=== PATIENT | female | born 1960 | race African-American/Black ===

== ENCOUNTER 2016-11-02 11:25 | Emergency (ER) | payer MEDICAID ==
[~2016-11-02] VITALS: Ht 157.5 cm; Wt 68.0 kg
[2016-11-02] MEDS ORDERED: FLUORESCEIN SODIUM 1MG/STRIP BOTHEYE ONE (19:00)
[2016-11-02] MEDS ORDERED: MORPHINE SULFATE 4 MG/ML CPJ (NOT FOR IM USE) IV ONE (19:00)
[2016-11-02] MEDS ORDERED: TETRACAINE 0.5% OPHTH DROPS 4ML BOTHEYE ONE (19:00)
[2016-11-02] MEDS ORDERED: TRAMADOL 50MG TABLET PO ONE (19:45)
[2016-11-02 21:00] VITALS: BP 127/86
== END 2016-11-02 21:20 | disposition home or self-care (01) ==
LOC: ER 11:25
DX: H10.9 Unspecified conjunctivitis (principal); Z88.6 Allergy status to analgesic agent
CPT/HCPCS: 99283; Z7610; J2270

== ENCOUNTER 2021-01-25 19:34 | Emergency (ER) | payer MEDICAID ==
[~2021-01-25] VITALS: Ht 167.6 cm; Wt 55.1 kg
[2021-01-25 19:43] VITALS: BP 158/94
[2021-01-25] MEDS ORDERED: SODIUM CHLORIDE 0.9% 1,000 ML IV ONE (23:45)
[2021-01-26 00:28] LABS: CHLORIDE 107 mEq/L (98-107)
[2021-01-26 00:32] LABS: ETHANOL BLOOD 92 mg/dL
[2021-01-26 00:40] LABS: BASOPHILS % 0.8 % (0.0-2.0); EOSINOPHILS % 1.2 % (0.0-5.0); HEMATOCRIT. 42.8 % (36.0-48.0); HEMOGLOBIN. 14.5 g/dL (12.0-16.0); LYMPHOCYTES % 67.7 % (20.0-50.0); MEAN CORPUSCULAR HEMOGLOBIN 34.2 pg (28.0-32.0); MEAN CORPUSCULAR VOLUME 100.8 fL (81.0-99.0); MEAN PLATELET VOLUME 7.6 fl (7.4-10.4); MONOCYTES % 10.1 % (2.0-8.0); NEUTROPHILS % 20.2 % (40.0-76.0); PLATELET 214 x1000/uL (130-400); RED BLOOD CELL COUNT 4.24 mill/uL (4.2-5.4); RED CELL DISTRIBUTION WIDTH 13.8 % (11.6-14.6)
[2021-01-26] MEDS ORDERED: ONDA4TAB5 MT (04:28)
[2021-01-26 05:18] LABS: *BARBITURATES SCREEN URINE NEGATIVE (NEGATIVE); CANNABINOID URINE SCREEN NEGATIVE (NEGATIVE); OPIATES URINE SCREEN NEGATIVE (NEGATIVE); PHENCYCLIDINE URINE SCREEN PRESUMTIVE POSITIVE (NEGATIVE)
[2021-01-26 05:19] LABS: *AMPHETAMINES SCREEN URINE NEGATIVE (NEGATIVE); *BENZODIAZEPINES SCREEN URINE NEGATIVE (NEGATIVE); *COCAINE SCREEN URINE PRESUMTIVE POSITIVE (NEGATIVE); METHADONE URINE SCREEN NEGATIVE (NEGATIVE)
== END 2021-01-26 06:09 | disposition home or self-care (01) ==
LOC: ER 19:34
DX: R06.02 Shortness of breath (principal); J45.909 Unspecified asthma, uncomplicated; Z23 Encounter for immunization
CPT/HCPCS: 36415; 71045; 80053; 80305; 80320; 83605; 85025; 99285; J7030; G0480

== ENCOUNTER 2024-11-06 06:35 | Emergency (ER) | payer MEDICAID ==
[~2024-11-06] VITALS: Ht 165.1 cm; Wt 55.0 kg
[~2024-11-06 06:35] MED LIST: ONDA4TAB5 MT
[2024-11-06 06:38] VITALS: O2SAT 100
[2024-11-06] MEDS: ACETAMINOPHEN 325MG TABLET PO ONE (07:43)
[2024-11-06] MEDS ORDERED: TOPUD PO (08:14)
[2024-11-06 08:43] VITALS: BP 115/71; PULSE 85; RESP 14; TEMP 36.8; O2SAT 95
== END 2024-11-06 08:52 | disposition home or self-care (01) ==
LOC: ER 06:35
DX: S00.83XA Contusion of other part of head, initial encounter (principal); Z79.899 Other long term (current) drug therapy; Z88.6 Allergy status to analgesic agent; Y09 Assault by unspecified means; Y93.89 Activity, other specified; Y92.89 Other specified places as the place of occurrence of the external cause; Y99.8 Other external cause status
CPT/HCPCS: 70486; 72170; 99284